=== PATIENT | male | born 1995 | race African-American/Black ===

== ENCOUNTER 2016-11-14 10:41 | Emergency (ER) | payer BC ==
[~2016-11-14] VITALS: Ht 188 cm; Wt 136.1 kg
[~2016-11-14 10:41] MED LIST: ARICEPT 5 MG TAB5 MG PO; CARDURA4 MG PO; CYCLOBENZAPRINE5 MG PO; CYMBALTA60 MG PO; DOXYCYCLINE 10100 MG PO; HYDROCODON-ACE1 EAC7 PO; IBUPROFEN 600600 M1 PO; IBUPROFEN 800800 MG PO; LASIX 40 MG TAB40 M2 PO; LISINOPRIL20 MG PO; MEDROL DOSPAK21 TAB PO; MEDROLDOSEPACK PO; NAPROSYN500 MG PO; NOHOMEMEDICATIONS; NORCO 5-325 TA1 EACH PO; OSELB75 PO; PHENERGAN 25 MG25 M1 PO; POTASSIUM20 PO; PRAVACHOL40 MG PO; PREDNISONE 10 M10 MG PO; PROSCAR 5MG TABL5 MG PO; TIZANIDINE HCL4 MG PO; VALACYCLOVIR500 MG PO
[2016-11-14] MEDS ORDERED: ERYTHROMYCIN E3.5 G3 OPHTHALMIC (11:56)
[2016-11-14 12:15] VITALS: BP 134/72
== END 2016-11-14 12:15 | disposition home or self-care (01) ==
LOC: ER 10:41
DX: H10.89 Other conjunctivitis (principal); J02.9 Acute pharyngitis, unspecified; J06.9 Acute upper respiratory infection, unspecified; J45.909 Unspecified asthma, uncomplicated; G43.909 Migraine, unspecified, not intractable, without status migrainosus; Z98.890 Other specified postprocedural states